=== PATIENT | male | born 1970 | race Hispanic/Latino ===

== ENCOUNTER 2021-06-24 09:45 | Inpatient (IN) | payer OTHER ==
[2021-06-24 11:51] LABS: Hemoglobin 12.7 g/dL (13.5-17.5); Mean Corpuscular HGB CONC 33.5 g/dL (32.0-36.0); Mean Corpuscular Hemoglobin 29.6 pg (27.0-33.0); Mean Corpuscular Volume 88.3 fl (81.2-95.1); Platelet Count 341 10x3/uL (150-450); RBC Distribution Width 12.3 % (11.5-14.5); Red Blood Cell (RBC) Count 4.29 10x6/uL (4.32-5.72); White Blood Cell (WBC) Count 6.3 10x3/uL (3.5-10.5)
[2021-06-24 11:53] LABS: Anion Gap 13 mmol/L (10-20); BUN (Urea Nitrogen) 15 mg/dL (8.4-25.7); Calc. Creatinine Clearance 0 mL/min (70-130); Calcium 9.9 mg/dL (7.8-10.44); Carbon Dioxide 26 mmol/L (22-29); Chloride 103 mmol/L (98-107); Glucose 239 mg/dL (70-105); Potassium 4.6 mmol/L (3.5-5.1); Sodium 137 mmol/L (136-145)
[2021-06-25 00:24] LABS: SARS-CoV-2 PCR by NAA Not Detected (NotDetected)
[2021-06-28] MEDS ORDERED: Albumin 5% 500 ML ONE (06:20)
[2021-06-28] MEDS ORDERED: Fentanyl 250 MCG/5 ML VIAL ONE (06:32)
[2021-06-28] MEDS ORDERED: Midazolam HCl 2 mg/2 ml Vial ONE (06:32)
[2021-06-28] MEDS ORDERED: Phenylephrine 10 MG/ML VIAL ONE (06:32)
[2021-06-28] MEDS ORDERED: Heparin 10,000 UNITS/1 ML VIAL 30,000 UNITS in Sodium Chloride 0.9% 1,000 ML IVPB SCH (07:00)
[2021-06-28] MEDS ORDERED: Insulin Regular 300 UNITS/3 ML VIAL ONE (07:03)
[2021-06-28] MEDS ORDERED: Sodium Chloride 0.9% 40 ML ONE (07:04)
[2021-06-28] MEDS ORDERED: Heparin 5,000 UNITS/ML VIAL ONE (07:38)
[2021-06-28] MEDS ORDERED: Magnesium Sulfate 1 GM/2 ML VIAL ONE (07:38)
[2021-06-28] MEDS ORDERED: Lidocaine 1% PF 5 ML VIAL ONE (07:38)
[2021-06-28] MEDS ORDERED: Dexamethasone 20 MG/5 ML VIAL ONE (07:38)
[2021-06-28] MEDS ORDERED: Rocuronium Bromide 10 MG/ML (10ML VIAL) ONE (07:38)
[2021-06-28] MEDS ORDERED: Aminocaproic Acid 5 GM/20 ML VIAL ONE (07:38)
[2021-06-28] MEDS ORDERED: Papaverine 60 MG/2 ML VIAL ONE (07:38)
[2021-06-28] MEDS ORDERED: Ondansetron PF 4 MG/2 ML Vial ONE (07:38)
[2021-06-28] MEDS ORDERED: Ketorolac Tromethamine 30 MG/ML VIAL ONE (07:38)
[2021-06-28] MEDS ORDERED: Protamine Sulfate 250 MG/25 ML VIAL ONE (07:38)
[2021-06-28] MEDS ORDERED: Cardioplegic Soln 1,000 ML BAG ONE (07:38)
[2021-06-28] MEDS ORDERED: Thrombin 5000 UNITS/5 ML VIAL ONE (07:38)
[2021-06-28] MEDS ORDERED: Calcium Chloride 1 GM/10 ML Abboject SYRINGE ONE (07:38)
[2021-06-28] MEDS ORDERED: Mannitol 12.5 GM/50 ML ONE (07:38)
[2021-06-28] MEDS ORDERED: Sodium Bicarb 50 MEQ/50 ML Abboject 8.4% SYRINGE ONE (07:38)
[2021-06-28] MEDS ORDERED: Potassium Chloride 60 MEQ/30 ML VIAL ONE (07:38)
[2021-06-28] MEDS ORDERED: PROPOFOL 200 MG/20 ML VIAL ONE (07:38)
[2021-06-28] MEDS ORDERED: Lidocaine 2% PF 100 mg/5 ml Syringe ONE (07:38)
[2021-06-28] MEDS ORDERED: PHENYLEPHRINE-NS 100 MCG/ML 10 ML SYRINGE ONE (09:15)
[2021-06-28] MEDS ORDERED: Protamine Sulfate 50 MG/5 ML VIAL ONE (10:31)
[2021-06-28] MEDS ORDERED: Post-Op Insulin Drip Protocol IVPB ONE (11:02)
[2021-06-28] MEDS ORDERED: Bisacodyl 5 MG TAB PO PRN (11:02)
[2021-06-28] MEDS ORDERED: Morphine 2 MG/ML VIAL SLOW IVP PRN (11:02)
[2021-06-28] MEDS ORDERED: Ondansetron PF 4 MG/2 ML Vial IVP PRN (11:02)
[2021-06-28] MEDS ORDERED: DOPamine 400 MG/D5W 250 ML 250 ML IVPB PRN (11:02)
[2021-06-28] MEDS ORDERED: Bisacodyl 10 MG SUPP PR PRN (11:02)
[2021-06-28] MEDS ORDERED: hydrALAZINE 20 MG/ML VIAL SLOW IVP PRN (11:02)
[2021-06-28] MEDS ORDERED: Nitroglycerin 50 MG/250 ML BOT 250 ML IVPB PRN (11:02)
[2021-06-28] MEDS ORDERED: HYDROcodone/Acetaminophen 5/325 mg Tablet PO PRN (11:02)
[2021-06-28] MEDS ORDERED: Potassium Chloride 20 MEQ/100 ML PREMIX BAG IVPB PRN (11:02)
[2021-06-28] MEDS ORDERED: Guaifenesin DM 100-10/5 ML UDCUP PO PRN (11:02)
[2021-06-28] MEDS ORDERED: Mag-Al 1200 mg/1200 mg/30 ML UDCUP PO PRN (11:02)
[2021-06-28] MEDS ORDERED: Hetastarch 6% 500 ML 500 ML IVPB PRN (11:02)
[2021-06-28] MEDS ORDERED: Acetaminophen 325 MG TAB PO PRN (11:02)
[2021-06-28] MEDS ORDERED: niCARdipine 25 MG in Sodium Chloride 0.9% 250 ML 250 ML IVPB PRN (11:02)
[2021-06-28] MEDS ORDERED: Fentanyl 100 MCG/2 ML VIAL SLOW IVP PRN ×2 (11:02)
[2021-06-28] MEDS ORDERED: Promethazine HCl 25 MG/ML VIAL IM PRN (11:02)
[2021-06-28] MEDS ORDERED: Norepinephrine 8 MG/0.9% NS 250 ML IVPB PRN (11:02)
[2021-06-28] MEDS ORDERED: Dextrose 5% in Water 1,000 ML IV PRN (11:15)
[2021-06-28] MEDS ORDERED: Insulin Regular 300 UNITS/3 ML VIAL SC PRN (11:15)
[2021-06-28] MEDS ORDERED: HUMULIN R 100 UNITS in Sodium Chloride 0.9% 100 ML IVPB SCH (11:15)
[2021-06-28] MEDS ORDERED: Lantus 1000 UNITS/10 ML VIAL SC PRN (11:15)
[2021-06-28] MEDS ORDERED: Dextrose 50% Abboject 50 ML SYRINGE SLOW IVP PRN (11:15)
[2021-06-28 11:19] LABS: Actual Bicarbonate (HCO3a) 24.4 mEq/L (22-28); Base Excess (BEa) -1.5 mEq/L (-2.0 to +3.0); CO2 Tension 45.8 mmHg (35.0-45.0); Calcium, Ionized (arterial) 1.23 mmol/L (1.12-1.30); Carboxyhemoglobin (COHb) 0.3 gm% (0.0-3.0); Hemoglobin (Hb) 11.1 g/dL (14.0-18.0); O2 Tension (PaO2), arterial 148.7 mmHg (80.0-100.0); Potassium - ABG Lab 4.02 mmol/L (3.70-5.30); pH, Arterial 7.34 (7.35-7.45)
[2021-06-28 11:25] LABS: Puncture Site Arterial Line
[2021-06-28 11:33] LABS: INR-International Normal Ratio 1.3; Prothrombin Time 16.5 sec (12.0-14.7)
[2021-06-28 11:34] LABS: PTT 34.1 sec (22.9-36.1)
[2021-06-28 11:40] LABS: Anion Gap 6 mmol/L (10-20); BUN (Urea Nitrogen) 14 mg/dL (8.4-25.7); Calc. Creatinine Clearance 115 mL/min (70-130); Calcium 8.2 mg/dL (7.8-10.44); Carbon Dioxide 25 mmol/L (22-29); Chloride 108 mmol/L (98-107); Glucose 158 mg/dL (70-105); Potassium 3.9 mmol/L (3.5-5.1); Sodium 135 mmol/L (136-145)
[2021-06-28] MEDS: Lactated Ringer's 1,000 ML IV SCH ×2 (11:42→23:44)
[2021-06-28] MEDS: Ketorolac Tromethamine 30 MG/ML VIAL IVP SCH ×3 (11:47→23:44)
[2021-06-28 11:54] LABS: Hemoglobin 10.5 g/dL (14.0-18.0); Mean Corpuscular HGB CONC 33.4 g/dL (32.0-36.0); Mean Corpuscular Hemoglobin 30.2 pg (27.0-31.0); Mean Corpuscular Volume 90.3 fL (78.0-98.0); Mean Platelet Volume 6.6 fL (7.4-10.4); Platelet Count 186 thou/uL (130-400); Red Blood Cell (RBC) Count 3.48 mill/uL (4.70-6.10); White Blood Cell (WBC) Count 22.2 thou/uL (4.8-10.8)
[2021-06-28 12:10] LABS: Band 18 % (5-11); Eosinophils 3 % (0-10); Lymphocytes 11 % (21-51); MDiff Complete? YES; Monocytes 5 % (0-10); Neutrophil 63 % (42-75); Platelet Morphology Comment Appears Adequate; Polychromasia SLIGHT = 2-3 cells (100X) (0-2/hpf)
[2021-06-28 14:13] LABS: Actual Bicarbonate (HCO3a) 22.3 mEq/L (22-28); Base Excess (BEa) -3.4 mEq/L (-2.0 to +3.0); CO2 Tension 42.3 mmHg (35.0-45.0); Carboxyhemoglobin (COHb) 0.3 gm% (0.0-3.0); Hemoglobin (Hb) 11.3 g/dL (14.0-18.0); O2 Tension (PaO2), arterial 155.1 mmHg (80.0-100.0); pH, Arterial 7.34 (7.35-7.45)
[2021-06-28 14:15] LABS: ALV-art Gradient 77.225 mmHg (0-20); Puncture Site Arterial Line
[2021-06-28] MEDS ORDERED: CEFAZOLIN 2 GM in Premix Bag 1 BAG IVPB SCH (15:00)
[2021-06-28] MEDS: CEFAZOLIN 2 GM in Sodium Chloride 0.9% 100 ML IVPB SCH ×2 (15:13→22:05)
[2021-06-28 17:31] LABS: Hemoglobin 9.7 g/dL (14.0-18.0)
[2021-06-28] MEDS: HYDROcodone/Acetaminophen 5/325 mg Tablet PO PRN (19:57)
[2021-06-28] MEDS ORDERED: Famotidine/PF 20 mg/2ml Vial SLOW IVP SCH (21:00)
[2021-06-28] MEDS ORDERED: Simvastatin 40 MG TAB PO SCH (21:00)
[2021-06-29 04:02] LABS: #Lymphocytes 1.6 thou/uL (1.20-3.40); #Monocytes 1.1 thou/uL (0.11-0.59); #Neutrophils 15.2 thou/uL (1.40-6.50); %Basophils 0.1 % (0.0-1.0); %Eosinophils 0.1 % (0.0-10.0); %Lymphocytes 8.7 % (21.0-51.0); %Monocytes 6.2 % (0.0-10.0); %Neutrophils 84.9 % (42.0-75.0); Hemoglobin 9.1 g/dL (14.0-18.0); Mean Corpuscular HGB CONC 33.2 g/dL (32.0-36.0); Mean Corpuscular Hemoglobin 30.3 pg (27.0-31.0); Mean Corpuscular Volume 91.3 fL (78.0-98.0); Mean Platelet Volume 7.1 fL (7.4-10.4); Platelet Count 226 thou/uL (130-400)
[2021-06-29 04:22] LABS: Anion Gap 10 mmol/L (10-20); BUN (Urea Nitrogen) 19 mg/dL (8.4-25.7); Calc. Creatinine Clearance 111 mL/min (70-130); Calcium 8.1 mg/dL (7.8-10.44); Carbon Dioxide 26 mmol/L (22-29); Chloride 106 mmol/L (98-107); Glucose 109 mg/dL (70-105); Potassium 5.4 mmol/L (3.5-5.1); Sodium 137 mmol/L (136-145)
[2021-06-29] MEDS: Ketorolac Tromethamine 30 MG/ML VIAL IVP SCH ×4 (05:36→23:36)
[2021-06-29] MEDS: CEFAZOLIN 2 GM in Sodium Chloride 0.9% 100 ML IVPB SCH (06:18)
[2021-06-29] MEDS ORDERED: Nitroglycerin 0.4 MG TAB (25 Tab Bottle) SL PRN (07:50)
[2021-06-29] MEDS ORDERED: Mineral Oil ENEMA PR PRN (07:50)
[2021-06-29] MEDS ORDERED: Dextrose 50% Abboject 50 ML SYRINGE SLOW IVP PRN (08:00)
[2021-06-29] MEDS ORDERED: Dextrose 5% in Water 1,000 ML IV PRN (08:00)
[2021-06-29] MEDS: Famotidine 20 MG TAB PO SCH ×2 (08:39→20:03)
[2021-06-29] MEDS: Aspirin 325 mg Enteric Coated Tablet PO SCH (08:39)
[2021-06-29] MEDS ORDERED: Aspirin 325 MG TAB PO SCH (09:00)
[2021-06-29] MEDS ORDERED: DOPamine 400 MG/D5W 250 ML 250 ML IVPB SCH (11:30)
[2021-06-29] MEDS: Insulin Regular 300 UNITS/3 ML VIAL SC PRN ×2 (11:36→17:05)
[2021-06-29] MEDS ORDERED: Norepinephrine 8 MG/0.9% NS 250 ML ONE (12:56)
[2021-06-29] MEDS ORDERED: Norepinephrine 8 MG/0.9% NS 250 ML IVPB SCH (13:30)
[2021-06-29] MEDS ORDERED: ceFAZolin Sodium/D5W 2 GM in Premix Bag 1 BAG IVPB SCH (15:00)
[2021-06-29] MEDS: Simvastatin 20 MG TAB PO SCH (21:08)
[2021-06-29] MEDS: HYDROcodone/Acetaminophen 5/325 mg Tablet PO PRN (23:35)
[2021-06-30 04:29] LABS: Anion Gap 11 mmol/L (10-20); BUN (Urea Nitrogen) 21 mg/dL (8.4-25.7); Calc. Creatinine Clearance 116 mL/min (70-130); Calcium 8.1 mg/dL (7.8-10.44); Carbon Dioxide 26 mmol/L (22-29); Chloride 104 mmol/L (98-107); Glucose 204 mg/dL (70-105); Potassium 4.6 mmol/L (3.5-5.1); Sodium 136 mmol/L (136-145)
[2021-06-30] MEDS: Ketorolac Tromethamine 30 MG/ML VIAL IVP SCH (05:28)
[2021-06-30] MEDS: Insulin Regular 300 UNITS/3 ML VIAL SC PRN ×2 (05:30→10:53)
[2021-06-30 06:08] LABS: #Eosinphils 0.1 thou/uL (0.0-0.7); #Lymphocytes 2.9 thou/uL (1.20-3.40); #Monocytes 1.2 thou/uL (0.11-0.59); #Neutrophils 9.4 thou/uL (1.40-6.50); %Basophils 0.3 % (0.0-1.0); %Eosinophils 0.7 % (0.0-10.0); %Neutrophils 69.1 % (42.0-75.0); Hemoglobin 7.9 g/dL (14.0-18.0); Mean Corpuscular HGB CONC 33.8 g/dL (32.0-36.0); Mean Corpuscular Hemoglobin 30.4 pg (27.0-31.0); Mean Platelet Volume 7.1 fL (7.4-10.4); Platelet Count 198 thou/uL (130-400); Red Blood Cell (RBC) Count 2.61 mill/uL (4.70-6.10); White Blood Cell (WBC) Count 13.6 thou/uL (4.8-10.8)
[2021-06-30] MEDS: HYDROcodone/Acetaminophen 5/325 mg Tablet PO PRN ×3 (07:39→21:23)
[2021-06-30] MEDS: metFORMIN 500 MG TAB PO SCH ×2 (07:41→17:36)
[2021-06-30] MEDS: Furosemide 40 MG TAB PO SCH (07:42)
[2021-06-30] MEDS: Aspirin 325 mg Enteric Coated Tablet PO SCH (07:42)
[2021-06-30] MEDS: Famotidine 20 MG TAB PO SCH ×2 (07:42→21:22)
[2021-06-30] MEDS: Multivitamins CHEW w/Iron Tablet PO SCH (10:53)
[2021-06-30] MEDS: Simvastatin 20 MG TAB PO SCH (21:22)
[2021-07-01 05:07] LABS: Hemoglobin 7.7 g/dL (14.0-18.0); Platelet Count 189 thou/uL (130-400)
[2021-07-01 08:04] LABS: Glucose 156 mg/dL (70-105)
[2021-07-01] MEDS: Furosemide 40 MG TAB PO SCH (10:44)
[2021-07-01] MEDS: Aspirin 325 mg Enteric Coated Tablet PO SCH (10:44)
[2021-07-01] MEDS: metFORMIN 500 MG TAB PO SCH ×2 (10:45→18:26)
[2021-07-01] MEDS: Famotidine 20 MG TAB PO SCH ×2 (10:45→20:41)
[2021-07-01 12:24] LABS: Glucose 142 mg/dL (70-105)
[2021-07-01 17:12] LABS: Glucose 168 mg/dL (70-105)
[2021-07-01 17:18] LABS: Acetaminophen Less than 6.0 mcg/mL (10.0-30.0); Alcohol Less than 10 mg/dL (Less than 10); Salicylate Less than 8.0 mg/dL (15.0-30.0)
[2021-07-01] MEDS: Multivitamins CHEW w/Iron Tablet PO SCH (17:57)
[2021-07-01] MEDS: Insulin Regular 300 UNITS/3 ML VIAL SC PRN (18:32)
[2021-07-01] MEDS: Simvastatin 20 MG TAB PO SCH (20:43)
[2021-07-02 01:05] LABS: Amphetamine Not Detected (NotDetected); Barbiturates Screen Not Detected (NotDetected); Benzodiazepine Screen Not Detected (NotDetected); Cocaine Metabolite Screen Not Detected (NotDetected); Methadone Not Detected (NotDetected); Methamphetamine Not Detected (NotDetected); Opiate Screen Detected (NotDetected); Oxycodone Screen Not Detected (NotDetected); Phencyclidine (PCP) Not Detected (NotDetected); THC/Cannabinoid Screen Not Detected (NotDetected); Tricyclic Screen Not Detected (NotDetected)
[2021-07-02] MEDS ORDERED: Metoprolol Tartrate 25 MG TAB PO SCH (09:00)
[2021-07-02] MEDS: Aspirin 325 mg Enteric Coated Tablet PO SCH (09:33)
[2021-07-02] MEDS: Famotidine 20 MG TAB PO SCH ×2 (09:33→21:27)
[2021-07-02] MEDS: Polyethylene Glycol 3350 17 GM Packet PO SCH (09:33)
[2021-07-02] MEDS: Furosemide 40 MG TAB PO SCH (09:34)
[2021-07-02] MEDS: Multivitamins CHEW w/Iron Tablet PO SCH ×2 (09:38→12:06)
[2021-07-02] MEDS: metFORMIN 500 MG TAB PO SCH ×2 (09:38→16:35)
[2021-07-02 10:06] LABS: Glucose 134 mg/dL (70-105)
[2021-07-02 11:56] VITALS: BMI 29.8
[2021-07-02 12:55] LABS: Glucose 149 mg/dL (70-105)
[2021-07-02] MEDS: Simvastatin 20 MG TAB PO SCH (21:27)
[2021-07-03 04:26] LABS: #Basophils 0.1 thou/uL (0.0-0.2); #Eosinphils 0.2 thou/uL (0.0-0.7); #Lymphocytes 2.8 thou/uL (1.20-3.40); #Monocytes 1.2 thou/uL (0.11-0.59); #Neutrophils 5.9 thou/uL (1.40-6.50); %Basophils 0.5 % (0.0-1.0); %Eosinophils 2.2 % (0.0-10.0); %Lymphocytes 27.4 % (21.0-51.0); %Monocytes 11.4 % (0.0-10.0); %Neutrophils 58.4 % (42.0-75.0); Hemoglobin 8.6 g/dL (14.0-18.0); Mean Corpuscular HGB CONC 35.7 g/dL (32.0-36.0); Mean Corpuscular Hemoglobin 31.6 pg (27.0-31.0); Mean Corpuscular Volume 88.4 fL (78.0-98.0); Mean Platelet Volume 6.4 fL (7.4-10.4); Platelet Count 315 thou/uL (130-400); RBC Distribution Width 12.4 % (11.5-14.5); Red Blood Cell (RBC) Count 2.72 mill/uL (4.70-6.10); White Blood Cell (WBC) Count 10.1 thou/uL (4.8-10.8)
[2021-07-03 07:58] LABS: Glucose 157 mg/dL (70-105)
[2021-07-03] MEDS: Aspirin 325 mg Enteric Coated Tablet PO SCH (09:38)
[2021-07-03] MEDS: Multivitamins CHEW w/Iron Tablet PO SCH (09:38)
[2021-07-03] MEDS: Famotidine 20 MG TAB PO SCH (09:38)
[2021-07-03] MEDS: Polyethylene Glycol 3350 17 GM Packet PO SCH (09:38)
[2021-07-03] MEDS: metFORMIN 500 MG TAB PO SCH (09:38)
[2021-07-03] MEDS: Furosemide 40 MG TAB PO SCH (09:41)
[2021-07-03] MEDS: Insulin Regular 300 UNITS/3 ML VIAL SC PRN (11:33)
[2021-07-03 11:48] LABS: Glucose 198 mg/dL (70-105)
[2021-07-03 12:54] VITALS: TEMP 97.8
[2021-07-03 14:47] VITALS: BP 96/61
[2021-07-03] MEDS ORDERED: Atorvastatin Calcium 40 MG TAB PO SCH (21:00)
== END 2021-07-03 15:35 | disposition home or self-care (01) | DRG 235 ==
LOC: SURG A 06-28 05:34 → EDSTATUS 06-28 09:45 → CCU 06-28 10:32 → 2NO 06-30 16:24
PROVIDERS: ADMIT Thoracic Surgery (Cardiothoracic Vascular Surgery); ATTEND Thoracic Surgery (Cardiothoracic Vascular Surgery)
PROC: 021209W Bypass Coronary Artery, Three Arteries from Aorta with Autologous Venous Tissue, Open Approach (ICD-10-PCS; principal; 2021-06-28)
PROC: 02100Z9 Bypass Coronary Artery, One Artery from Left Internal Mammary, Open Approach (ICD-10-PCS; 2021-06-28)
PROC: 06BQ0ZZ Excision of Left Saphenous Vein, Open Approach (ICD-10-PCS; 2021-06-28)
PROC: 06BP0ZZ Excision of Right Saphenous Vein, Open Approach (ICD-10-PCS; 2021-06-28)
PROC: 5A1221Z Performance of Cardiac Output, Continuous (ICD-10-PCS; 2021-06-28)
PROC: 3E033XZ Introduction of Vasopressor into Peripheral Vein, Percutaneous Approach (ICD-10-PCS; 2021-06-28)
DX: I25.10 Atherosclerotic heart disease of native coronary artery without angina pectoris (principal); I63.532 Cerebral infarction due to unspecified occlusion or stenosis of left posterior cerebral artery; R29.710 NIHSS score 10; Z20.822 Contact with and (suspected) exposure to COVID-19; E78.5 Hyperlipidemia, unspecified; M10.9 Gout, unspecified; I25.5 Ischemic cardiomyopathy; I42.0 Dilated cardiomyopathy; I16.0 Hypertensive urgency; F15.10 Other stimulant abuse, uncomplicated; N18.2 Chronic kidney disease, stage 2 (mild); I12.9 Hypertensive chronic kidney disease with stage 1 through stage 4 chronic kidney disease, or unspecified chronic kidney disease; E11.22 Type 2 diabetes mellitus with diabetic chronic kidney disease; E11.65 Type 2 diabetes mellitus with hyperglycemia; I08.2 Rheumatic disorders of both aortic and tricuspid valves; I25.2 Old myocardial infarction; Z79.899 Other long term (current) drug therapy; Z79.82 Long term (current) use of aspirin
CPT/HCPCS: 36415; 36416; 36430; 70551; 71045; 80048; 80306; 80307; 82805; 82947; 85014; 85018; 85025; 85027; 85049; 85610; 85730; 86850; 86900; 86901; 93005; 93010; 93306; 93798; 93880; 94002; J0690; J1100; J1265; J1642; J1644; J1815; J1885; J2001; J2150; J2250; J2370; J2405; J2440; J2704; J2720; J3010; J3370; J3475; J3480; J3490; J7120; P9045; S0017; S0028; U0003; U0005

== ENCOUNTER 2021-06-24 10:08 | Outpatient (CLI) | payer SELFPAY | END 2021-06-24 10:09 | disposition home or self-care (01) | LOC: LABBT 10:08 | PROVIDERS: ATTEND Thoracic Surgery (Cardiothoracic Vascular Surgery) | DX: Z01.812 Encounter for preprocedural laboratory examination (principal); Z20.822 Contact with and (suspected) exposure to COVID-19 | CPT/HCPCS: 80048; 85027; 86850; 86900; 86901; U0003; U0005 ==

== ENCOUNTER 2021-10-06 11:15 | Emergency (ER) | payer OTHER, SELFPAY ==
[2021-10-06] MEDS ORDERED: Boostrix 0.5 ML (Tdap) VIAL ONE ×2 (12:47→13:01)
== END 2021-10-06 13:07 | disposition home or self-care (01) ==
LOC: ERS 11:15
DX: S61.411A Laceration without foreign body of right hand, initial encounter (principal); I11.0 Hypertensive heart disease with heart failure; I50.9 Heart failure, unspecified; E11.9 Type 2 diabetes mellitus without complications; M10.9 Gout, unspecified; I25.10 Atherosclerotic heart disease of native coronary artery without angina pectoris; W26.8XXA Contact with other sharp object(s), not elsewhere classified, initial encounter; Y92.69 Other specified industrial and construction area as the place of occurrence of the external cause; Z23 Encounter for immunization
CPT/HCPCS: 90471; 90715

== ENCOUNTER 2022-05-12 06:10 | Emergency (ER) | payer OTHER, SELFPAY ==
[2022-05-12 07:54] LABS: #Basophils 0.1 thou/uL (0.0-0.2); #Eosinphils 0.1 thou/uL (0.0-0.7); #Lymphocytes 2.2 thou/uL (1.20-3.40); #Monocytes 0.6 thou/uL (0.11-0.59); #Neutrophils 4.4 thou/uL (1.40-6.50); %Basophils 0.9 % (0.0-1.0); %Eosinophils 1.9 % (0.0-10.0); %Lymphocytes 29.8 % (21.0-51.0); %Monocytes 7.8 % (0.0-10.0); %Neutrophils 59.5 % (42.0-75.0); Hemoglobin 13.8 g/dL (14.0-18.0); Mean Corpuscular HGB CONC 34.4 g/dL (32.0-36.0); Mean Corpuscular Hemoglobin 29.3 pg (27.0-31.0); Mean Corpuscular Volume 85.2 fL (78.0-98.0); Mean Platelet Volume 7.5 fL (7.4-10.4); Platelet Count 258 thou/uL (130-400); RBC Distribution Width 13.2 % (11.5-14.5); Red Blood Cell (RBC) Count 4.71 mill/uL (4.70-6.10); White Blood Cell (WBC) Count 7.4 thou/uL (4.8-10.8)
[2022-05-12 08:17] LABS: ALT (SGPT) 19 U/L (8-55); AST (SGOT) 16 U/L (5-34); Albumin 3.9 g/dL (3.5-5.0); Alkaline Phosphatase 149 U/L (40-110); Anion Gap 13 mmol/L (10-20); BUN (Urea Nitrogen) 14 mg/dL (8.4-25.7); Bilirubin, Total 0.8 mg/dL (0.2-1.2); Calc. Creatinine Clearance 0 mL/min (70-130); Calcium 9.6 mg/dL (7.8-10.44); Carbon Dioxide 27 mmol/L (22-29); Chloride 96 mmol/L (98-107); Estimated GFR 78; Globulin 3.3 g/dL (2.4-3.5); Glucose 415 mg/dL (70-105); Lipase 40 U/L (8-78); Magnesium 1.8 mg/dL (1.6-2.6); Potassium 4.6 mmol/L (3.5-5.1); Protein, Total 7.2 g/dL (6.0-8.3); Sodium 131 mmol/L (136-145)
[2022-05-12] MEDS ORDERED: Insulin Regular 300 UNITS/3 ML VIAL ONE (08:25)
== END 2022-05-12 09:30 | disposition home or self-care (01) ==
LOC: ERS 06:10
DX: E11.65 Type 2 diabetes mellitus with hyperglycemia (principal); I25.10 Atherosclerotic heart disease of native coronary artery without angina pectoris; I11.0 Hypertensive heart disease with heart failure; I50.9 Heart failure, unspecified; M10.9 Gout, unspecified
CPT/HCPCS: 36415; 36416; 80053; 83690; 83735; 85025; 96361; 96374; J1815